=== PATIENT | female | born 1970 | race Caucasian/White ===

== ENCOUNTER → 2021-12-30 | Outpatient (CLI) | payer OTHER ==
--- NOTE | 2021-12-31 10:42 | MM ---
Reason for Exam: Screening (asymptomatic). Last mammogram was performed 10 year(s) and 4 month(s) ago. Patient History: Menarche at age 10. First Full-Term at age 34. Late child-bearing (after 30). 06/26/2007, Benign Cyst Aspiration on the right side. Risk Values: Shaunna 5 year model risk: 1.6%. NCI Lifetime model risk: 12.8%. Prior Study Comparison: 05/17/2007 Bilateral Screening Mammogram, [facility]. 09/13/2011 Bilateral Screening Mammogram, [facility]. Tissue Density: There are scattered fibroglandular densities. Findings: Analyzed By CAD. There is a rounded density with indistinct margins in the outer mid right breast. This area measures 10 mm located 8 cm the nipple, likely in the upper portion of the left breast additional workup is recommended. Compression view in the craniocaudal and mediolateral oblique views are recommended. Standard right mediolateral view is recommended Left breast appears unremarkable. Overall Assessment: Incomplete: need additional imaging evaluation, BI-RAD 0 Management: Diagnostic Mammogram of the right breast. A negative mammogram report should not preclude additional follow up of suspicious palpable abnormalities. Patient should continue monthly self breast exam. A clinical breast exam by your physician is recommended on an annual basis and results should be correlated with mammographic findings. Electronically signed and approved by: Sg Morales D.O. Radiologis
== END | disposition home or self-care (01) ==
LOC: RADMAMWWP 16:25
DX: Z12.31 Encounter for screening mammogram for malignant neoplasm of breast (principal)
CPT/HCPCS: 77067

== ENCOUNTER → 2022-01-18 | Outpatient (CLI) | payer OTHER ==
--- NOTE | 2022-01-18 16:46 | MM ---
Reason for Exam: Additional evaluation requested from abnormal screening. Last screening mammogram was performed less than 1 month ago. Patient History: Menarche at age 10. First Full-Term at age 34. Late child-bearing (after 30). 06/26/2007, Benign Cyst Aspiration on the right side. Last menstrual period: 01/11/2022 Risk Values: Shaunna 5 year model risk: 1.6%. NCI Lifetime model risk: 12.8%. Prior Study Comparison: 09/13/2011 Bilateral Screening Mammogram, [facility]. 12/30/2021 Bilateral MG screening mammo w CAD, [facility]. Tissue Density: Right: There are scattered fibroglandular densities. Findings: Analyzed By CAD. Focal asymmetry with indistinct margins in the outer mid right breast 8 cm in the nipple persists on the CC compression view. Overall Assessment: Incomplete: need additional imaging evaluation, BI-RAD 0 Management: Diagnostic Breast Ultrasound of the right breast. A clinical breast exam by your physician is recommended on an annual basis and results should be correlated with mammographic findings. This exam should not preclude additional follow-up of suspicious palpable abnormalities. Results were given to the patient verbally at the time of exam. Electronically signed and approved by: Froylan Gutierrez D.O.
--- NOTE | 2022-01-19 13:43 | USB ---
Reason for Exam: Additional evaluation requested from abnormal screening. Patient History: Menarche at age 10. First Full-Term at age 34. Late child-bearing (after 30). 06/26/2007, Benign Cyst Aspiration on the right side. Risk Values: Shaunna 5 year model risk: 1.6%. NCI Lifetime model risk: 12.8%. Technique: Method: Targeted. Prior Study Comparison: 05/17/2007 Bilateral Screening Mammogram, [facility]. 09/13/2011 Bilateral Screening Mammogram, [facility]. 12/30/2021 Bilateral MG screening mammo w CAD, [facility]. Findings: There is a hypoechoic mass within the right breast at 12:00 8 cm from the nipple with indistinct margins and no posterior acoustic features. No intravascular flow. This may represent a complicated cyst. Overall Assessment: Probably benign, BI-RAD 3 Management: Diagnostic Breast Ultrasound of the right breast in 6 months. A clinical breast exam by your physician is recommended on an annual basis and results should be correlated with mammographic findings. Electronically signed and approved by: Froylan Gutierrez D.O.
== END | disposition home or self-care (01) ==
LOC: RADMAMWWP 15:15
DX: R92.8 Other abnormal and inconclusive findings on diagnostic imaging of breast (principal)
CPT/HCPCS: 77061; 77065

== ENCOUNTER → 2023-10-31 | Outpatient (CLI) | payer OTHER, BC ==
[2023-10-31 09:31] LABS: Basophils # (A) 0.1 k/uL (0-0.2); Basophils % (A) 0 %; Eosinophils # (A) 0.2 k/uL (0-0.7); Eosinophils % (A) 2 %; HCT 43.5 % (34.0-46.0); HGB 14.2 gm/dL (11.4-16.0); Lymphocytes # (A) 1.8 k/uL (1.0-4.8); Lymphocytes % (A) 17 %; MCH 28.9 pg (25.0-35.0); MCHC 32.7 g/dL (31.0-37.0); MCV 88.4 fL (80.0-100.0); Mean Platelet Volume 9.4; Monocytes # (A) 0.5 k/uL (0-1.0); Monocytes % (A) 5 %; Neutrophils # (A) 7.8 k/uL (1.3-7.7); Neutrophils % (A) 75 %; Platelet Count 234 k/uL (150-450); RBC 4.92 m/uL (3.80-5.40); RDW 13.2 % (11.5-15.5); WBC 10.5 k/uL (3.8-10.6)
[2023-10-31 10:23] LABS: Amphetamine Screen,Urine Not Detected (NotDetected); Benzodiazepines Screen,Urine Detected (NotDetected); Cocaine Screen,Urine Not Detected (NotDetected); Methadone Screen, Urine Not Detected (NotDetected); Opiate Screen,Urine Not Detected (NotDetected); Phencyclidine Screen,Urine Not Detected (NotDetected); Tricyclic Antidepressant,Urine Not Detected (NotDetected); Urn Cannabinoid Scrn Not Detected (NotDetected)
[2023-10-31 10:24] LABS: Barbiturate Screen,Urine Not Detected (NotDetected); Oxycodone Screen, Urine Not Detected (NotDetected)
[2023-10-31 15:34] LABS: ALT 24 U/L (8-44); AST 16 U/L (13-35); Albumin 4.3 g/dL (3.8-4.9); Albumin/Globulin Ratio 1.59 Ratio (1.60-3.17); Alkaline Phosphatase 59 U/L (41-126); BUN/Creat Ratio 26.83 Ratio (12.00-20.00); Blood Urea Nitrogen 16.1 mg/dL (9.0-27.0); Calcium 10.6 mg/dL (8.7-10.3); Carbon Dioxide 23.8 mmol/L (21.6-31.8); Chloride 104 mmol/L (96-109); Globulin 2.7 g/dL (1.6-3.3); Glucose 112 mg/dL (70-110); Potassium 4.2 mmol/L (3.5-5.5); Sodium 142 mmol/L (135-145); Total Bilirubin 0.5 mg/dL (0.3-1.2)
[2023-10-31 21:40] LABS: Microalbumin Creatinine Ratio <20 mg/g Cr (0-30); Urine Creatinine 60.6 mg/dL (28.0-217.0)
== END | disposition home or self-care (01) ==
LOC: LABWHC1 08:05
PROVIDERS: ATTEND Family Medicine
DX: E11.65 Type 2 diabetes mellitus with hyperglycemia (principal); Z79.899 Other long term (current) drug therapy
CPT/HCPCS: 36415; 80053; 80061; 80306; 82043; 82570; 83036; 84443; 85025

== ENCOUNTER 2024-03-25 20:25 | Emergency (ER) | payer OTHER, BC ==
[2024-03-25 20:32] VITALS: TEMP 98.6
--- NOTE | 2024-03-25 20:50 | ED ---
Extremity Problem HPI - General Chief complaint: Extremity Problem,Nontraumatic Stated complaint: L Leg Pain Time Seen by Provider: 03/25/24 20:33 Source: patient, RN notes reviewed Mode of arrival: wheelchair Limitations: no limitations - History of Present Illness Initial comments: This is a 54-year-old female who presents to the emergency department for left knee pain. States that it started a couple of weeks ago. Denies any injuries. Pain is primarily behind the left knee with some radiation up and down the leg. However, states that this is only painful when she tries to ambulate or put pressure on it. When sitting still pain is not as bothersome. States that today she tried to stand and could not put any pressure on the leg, prompting her to come here for evaluation. She took ibuprofen 600 mg with only minor relief in symptoms. MD Complaint: extremity pain - Related Data Previous Rx's Medication Instructions Recorded Meloxicam [Mobic] 15 mg PO DAILY PRN #30 tab 03/25/24 methocarbamoL [Robaxin-750] 1,500 mg PO TID PRN #30 tab 03/25/24 Allergies Allergy/AdvReac Type Severity Reaction Status Date / Time Sulfa (Sulfonamide AdvReac Rash/Hives Verified 03/25/24 20:32 Antibiotics) Review of Systems ROS Statement: Those systems with pertinent positive or pertinent negative responses have been documented in the HPI. ROS Other: All systems not noted in ROS Statement are negative. Past Medical History Past Medical History: No Reported History History of Any Multi-Drug Resistant Organisms: None Reported Past Surgical History: Orthopedic Surgery, Tubal Ligation Additional Past Surgical History / Comment(s): right knee arthro, right foot Past Psychological History: Anxiety Smoking Status: Former smoker Past Alcohol Use History: None Reported Past Drug Use History: None Reported General Exam Limitations: no limitations General appearance: alert, in no apparent distress Head exam: Present: atraumatic, normocephalic, normal inspection Respiratory exam: Present: normal lung sounds bilaterally. Absent: respiratory distress, wheezes, rales, rhonchi, stridor Cardiovascular Exam: Present: regular rate, normal rhythm, normal heart sounds. Absent: systolic murmur, diastolic murmur, rubs, gallop, clicks Extremities exam: Present: other (No swelling, tenderness, erythema, or warmth to the left lower extremity. Full range of motion. Negative Miguel Angel's. Ne gative anterior posterior drawer test. Negative Paul's. 2+ DP and PT pulses) Neurological exam: Present: alert, oriented X3, CN II-XII intact Psychiatric exam: Present: normal affect, normal mood Skin exam: Present: warm, dry, intact, normal color. Absent: rash Course Vital Signs 03/25/24 03/25/24 20:27 22:33 Temperature 98.6 F Pulse Rate 78 65 Respiratory 16 18 Rate Blood Pressure 166/91 133/77 O2 Sat by Pulse 97 97 Oximetry Medical Decision Making - Medical Decision Making This is a 54-year-old female who presents to the emergency department for left knee pain. Was pt. sent in by a medical professional or institution? @ -No Did you speak to anyone other than the patient for history? @ -No Did you review nursing and triage notes? @ -Yes, and I agree, it is accurate with regards to the patient's symptoms. Were old charts reviewed? @ -No Differential Diagnosis? @ -Differential Musculoskeletal: Muscular strain, contusion, ligament sprain, fracture, arthritis, septic arthritis, bursitis, cellulitis, muscle spasm, nerve compression, DVT, arterial occlusion, herpes zoster, electrolyte abnormality, tumor.... This is not meant to be in all inclusive list EKG interpreted by me (3pts min.)? @ -Not obtained X-rays interpreted by me (1pt min.)? @ -X-ray of the left knee obtained. My interpretation identifies no acute fractures. CT interpreted by me (1pt min.)? @ -Not obtained U/S interpreted by me (1pt. min.)? @ -Duplex ultrasound of the left lower extremity obtained. My interpretation identifies no evidence of a DVT. What testing was considered but not performed? (CT, X-rays, U/S, labs)? Why? @ -None What meds were considered but not given? Why? @ -None Did you discuss the management of the patient with other professionals? @ -No Did you reconcile home meds? @ -No Was smoking cessation discussed for >3mins.? @ -No Was critical care preformed (if so, how long)? @ -No Were there social determinants of health that impacted care today? How? (Homelessness, low income, unemployed, alcoholism, drug addiction, transportation, low edu. Level, literacy, decrease access to med. care, shelter, rehab)? @ -No Was there de-escalation of care discussed even if they declined? (Discuss DNR or withdrawal of care, Hospice)? @ -No What co-morbidities impacted this encounter? (DM, HTN, Smoking, COPD, CAD, Cancer, CVA, Hep., AIDS, mental health diagnosis, sleep apnea, morbid obesity)? @ -None Was patient admitted / discharged? @ -Discharged. X-ray of the left knee obtained revealing no acute process. Duplex ultrasound of the left lower extremity reveals no evidence of a DVT. Pain medication given in the emergency department. Knee immobilizer applied. Mobic and Robaxin prescribed for further symptomatic management. Advised follow-up with her PCP or orthopedics. Patient discharged home in stable condition. Case discussed with ED attending Dr. Villeda. Return precautions reviewed in depth, the patient is instructed to return to the emergency department with any new, worsening, or concerning symptoms. Patient verbalized understanding. Undiagnosed new problem with uncertain prognosis? @ -None Drug Therapy requiring intensive monitoring for toxicity (Heparin, Nitro, Insulin, Cardizem)? @ -None Were any procedures done? @ -None Diagnosis/symptom? @ -Left knee pain Acute, or Chronic, or Acute on Chronic? @ -Acute Uncomplicated (without systemic symptoms) or Complicated (systemic symptoms)? @ -Uncomplicated Side effects of treatment? @ -None Exacerbation, Progression, or Severe Exacerbation] @ -Not applicable Poses a threat to life or bodily function? @ -No - Radiology Data Radiology results: report reviewed, image reviewed Disposition Clinical Impression: Left knee pain Disposition: HOME SELF-CARE Instructions (If sedation given, give patient instructions): Knee Pain (ED) Additional Instructions: Return to the emergency department with any new, worsening, or concerning symptoms. Take the Mobic once daily for pain relief. If you take this, do not take any other anti-inflammatories such as ibuprofen, take one or the other. You may take Tylenol. Take the Robaxin as 1 to 2 tablets up to 3-4 times daily. Follow up with your primary care provider in 1-2 days. Prescriptions: Meloxicam [Mobic] 15 mg PO DAILY PRN #30 tab PRN Reason: Pain methocarbamoL [Robaxin-750] 1,500 mg PO TID PRN #30 tab PRN Reason: Pain Is patient prescribed a controlled substance at d/c from ED?: No Referrals: [facility],Clinic [Primary Care Provider] - 1-2 days Time of Disposition: 22:11
[2024-03-25] MEDS: HYDROcodone/APAP 5-325MG 1 EACH TAB PO STA (20:53)
--- NOTE | 2024-03-25 21:25 | XR ---
EXAMINATION TYPE: XR knee complete LT DATE OF EXAM: 03/25/2024 9:18 PM COMPARISON: None available. CLINICAL INDICATION: Female, 54 years old with history of Pain; [facility] TECHNIQUE: XR knee complete LT views submitted. FINDINGS: No evidence of any acute osseous pathology, soft tissue swelling, or joint effusion is no hema. IMPRESSION: 1. No acute osseous pathology. [facility], , 03/25/2024 9:22 PM
--- NOTE | 2024-03-25 21:36 | US ---
EXAMINATION TYPE: US venous doppler duplex LE LT DATE OF EXAM: 03/25/2024 8:44 PM COMPARISON: NONE CLINICAL INDICATION: Female, 54 years old with history of Pain; Patient states leg pain behind the kn ee that started today. No swelling,redness, or warmth. No hx dvt. Patient is not on thinners, TECHNIQUE: The lower extremity deep venous system is examined utilizing real time linear array sonog toni with graded compression, color doppler sonography, and spectral doppler. SIDE PERFORMED: Left FINDINGS: VESSELS IMAGED: Common Femoral Vein Deep Femoral Vein Greater Saphenous Vein Femoral Vein Popliteal Vein Small Saphenous Vein Proximal Calf Veins Left Leg: Negative for DVT, Color Doppler imaging shows patency of the vessels. Spectral waveforms a re within normal limits. IMPRESSION: No ultrasound evidence for deep venous thrombosis. [facility], , 03/25/2024 9:34 PM
[2024-03-25] MEDS: KETOROLAC 15 MG/ML 1 ML VIAL IM STA (21:49)
[2024-03-25] MEDS: ACET/COD 300 MG/30 MG STARTER PACK 6 TAB BTL PO STA (22:24)
[2024-03-25] MEDS: MELOXICAM 7.5 MG TAB PO STA (22:25)
[2024-03-25 22:45] VITALS: BP 133/77; PULSE 65; RESP 18
== END 2024-03-25 22:33 | disposition home or self-care (01) ==
LOC: EC 20:25
DX: M25.562 Pain in left knee (principal); Z88.2 Allergy status to sulfonamides; Z87.891 Personal history of nicotine dependence
CPT/HCPCS: 73562; 93971; 99284; L1830 ×2

== ENCOUNTER 2024-09-16 13:14 | Emergency (ER) | payer OTHER, BC ==
--- NOTE | 2024-09-16 14:39 | ED ---
General Adult HPI - General Source: patient Mode of arrival: ambulatory Limitations: no limitations <Ayaan Villeda - Last Filed: 09/16/24 15:49> - General Source: patient, RN notes reviewed, old records reviewed Mode of arrival: ambulatory Limitations: no limitations - History of Present Illness Location: head Radiation: non-radiation Severity scale (1-10): 7 Quality: stabbing, aching Consistency: intermittent Improves with: none Associated Symptoms: denies other symptoms Treatments Prior to Arrival: none <Robb Mendoza - Last Filed: 09/16/24 16:46> - General Chief complaint: Nausea/Vomiting/Diarrhea Stated complaint: Vomiting Time Seen by Provider: 09/16/24 14:23 - History of Present Illness Initial comments: Dictation was produced using [employer] dictation software. please excuse any grammatical, word or spelling errors. Chief Complaint: 54-year-old female presents to the emergency department with migraine History of Present Illness: Patient is a 54-year-old female with past medical history of migraine presents to the emergency department with migraine and dizziness. Patient states that it feels like her usual migraines. [facility]. States that feels like it is encompassing her whole head. Throbbing in nature. She states she is sensitive to light and sound. The ROS documented in this emergency department record has been reviewed and confirmed by me. Those systems with pertinent positive or negative responses have been documented in the HPI. All other systems are other negative and/or noncontributory. (Ayaan Villeda) This is a 54-year-old female for migraine headaches this is just like her typical migraine headaches (Robb Mendoza) - Related Data Previous Rx's Medication Instructions Recorded Meloxicam [Mobic] 15 mg PO DAILY PRN #30 tab 03/25/24 methocarbamoL [Robaxin-750] 1,500 mg PO TID PRN #30 tab 03/25/24 Allergies Allergy/AdvReac Type Severity Reaction Status Date / Time Sulfa (Sulfonamide AdvReac Rash/Hives Verified 09/16/24 13:42 Antibiotics) Review of Systems ROS Other: All systems not noted in ROS Statement are negative. <Ayaan Villeda - Last Filed: 09/16/24 15:49> ROS Other: All systems not noted in ROS Statement are negative. <Robb Mendoza - Last Filed: 09/16/24 16:46> ROS Statement: Those systems with pertinent positive or pertinent negative responses have been documented in the HPI. Past Medical History Past Medical History: No Reported History History of Any Multi-Drug Resistant Organisms: None Reported Past Surgical History: Orthopedic Surgery, Tubal Ligation Additional Past Surgical History / Comment(s): right knee arthro, right foot Past Psychological History: Anxiety Smoking Status: Former smoker Past Alcohol Use History: None Reported Past Drug Use History: None Reported <Ayaan Villeda - Last Filed: 09/16/24 15:49> General Exam Limitations: no limitations <Ayaan Villeda - Last Filed: 09/16/24 15:49> General appearance: alert, in no apparent distress Head exam: Present: atraumatic, normocephalic, normal inspection Eye exam: Present: normal appearance, PERRL, EOMI. Absent: scleral icterus, con junctival injection, periorbital swelling ENT exam: Present: normal exam, mucous membranes moist Neck exam: Present: normal inspection. Absent: tenderness, meningismus, lymphadenopathy Respiratory exam: Present: normal lung sounds bilaterally. Absent: respiratory distress, wheezes, rales, rhonchi, stridor Cardiovascular Exam: Present: regular rate, normal rhythm, normal heart sounds. Absent: systolic murmur, diastolic murmur, rubs, gallop, clicks GI/Abdominal exam: Present: soft, normal bowel sounds. Absent: distended, tenderness, guarding, rebound, rigid Extremities exam: Present: normal inspection, full ROM, normal capillary refill. Absent: tenderness, pedal edema, joint swelling, calf tenderness Back exam: Present: normal inspection Neurological exam: Present: alert, oriented X3, CN II-XII intact Psychiatric exam: Present: normal affect, normal mood Skin exam: Present: warm, dry, intact, normal color. Absent: rash <Robb Mendoza - Last Filed: 09/16/24 16:46> - General Exam Comments Initial Comments: PHYSICAL EXAM: General Impression: Alert and oriented x3, mild distress secondary to migraine HEENT: Normocephalic atraumatic, extra-ocular movements intact, pupils equal and reactive to light bilaterally, mucous membranes moist. Cardiovascular: Heart regular rate and rhythm Chest: Able to complete full sentences, no retractions, no tachypnea Abdomen: abdomen soft, non-tender, non-distended, no organomegaly Musculoskeletal: Pulses present and equal in all extremities, no peripheral edema Motor: no focal deficits noted Neurological: CN II-XII grossly intact, no focal motor or sensory deficits noted Skin: Intact with no visualized rashes Psych: Normal affect and mood (Ayaan Villeda) Course <Robb Mendoza - Last Filed: 09/16/24 16:46> Vital Signs 09/16/24 13:40 Temperature 99.3 F Pulse Rate 114 H Respiratory 18 Rate Blood Pressure 134/84 O2 Sat by Pulse 96 Oximetry - Reevaluation(s) Reevaluation #1: 09/16/24 16:45 Medical records reviewed (Robb Mendoza) Reevaluation #2: 09/16/24 16:45 Symptoms improved feels good for discharge (Robb Mendoza) Medical Decision Making <Ayaan Villeda - Last Filed: 09/16/24 15:49> <Robb Mendoza - Last Filed: 09/16/24 16:46> - Medical Decision Making Was pt. sent in by a medical professional or institution (KEVIN Cortes, RETARDER OPERATOR, urgent care, hospital, or shelter...) When possible be specific @ -No Did you speak to anyone other than the patient for history (EMS, parent, family, police, friend...)? What history was obtained from this source @ -No Did you review nursing and triage notes (agree or disagree)? Why? @ -I reviewed and agree with nursing and triage notes Were old charts reviewed (outside hosp., previous admission, EMS record, old EKG, old radiological studies, urgent care reports/EKG's, shelter records)? Report findings @ -No old charts were reviewed Differential Diagnosis (chest pain, altered mental status, abdominal pain women, abdominal pain men, vaginal bleeding, musculoskeletal, weakness, fever, dyspnea, syncope, headache, dizziness, GI bleed, back pain, seizure, CVA, palpatations, mental health)? @ -Differential Headache: Migraine, tension, cluster, carbon monoxide, central venous thrombosis, pension karma temporal arteritis, acute closure glaucoma, intercranial hemorrhage, mastoiditis, sinusitis, head injury, this is not meant to be an all-inclusive list. EKG interpreted by me (3pts min.). @ -None done X-rays interpreted by me (1pt min.). @ -None done CT interpreted by me (1pt min.). @ -None done U/S interpreted by me (1pt. min.). @ -None done What testing was considered but not performed or refused? (CT, X-rays, U/S, labs)? Why? @ -None What meds were considered but not given or refused? Why? @ -None Was smoking cessation discussed for >3mins.? @ -No Were there social determinants of health that impacted care today? How? (Homelessness, low income, unemployed, alcoholism, drug addiction, transportation, low edu. Level, literacy, decrease access to med. care, usp, rehab)? @ -No Was there de-escalation of care discussed even if they declined (Discuss DNR or withdrawal of care, Hospice)? DNR status @ -No What co-morbidities impacted this encounter? (DM, HTN, Smoking, COPD, CAD, Cancer, CVA, ARF, Chemo, Hep., AIDS, mental health diagnosis, sleep apnea, morbid obesity)? @ -Migraine Was patient admitted / discharged? Hospital course, mention meds given and route, prescriptions, significant lab abnormalities, going to OR and other pertinent info. @ -54-year-old female with migraine. Vital signs stable. Patient has no high risk headache features. Patient given headache cocktail. She is requesting urinalysis after having some mild urinary symptoms after her cruise vacation. Improved after headache cocktail. Did you discuss the management of the patient with other professionals (professionals i.e. , PA, RETARDER OPERATOR, lab, RT, psych nurse, social service agency director, blood coordinator, teacher, chief safety officer, assistant case manager)? Give summary @ -No Was critical care preformed (if so, how long)? @ -No Undiagnosed new problem with uncertain prognosis? @ -No Drug Therapy requiring intensive monitoring for toxicity (Heparin, Nitro, Insulin, Cardizem)? @ -No Were any procedures done? @ -No Diagnosis/symptom? Acute, or Chronic, or Acute on Chronic? Uncomplicated (without systemic symptoms) or Complicated (systemic symptoms)? @ -Migraine Side effects of treatment? @ -No Exacerbation, Progression, or Severe Exacerbation? @ -No Poses a threat to life or bodily function? How? (Chest pain, USA, ID, pneumonia, PE, COPD, DKA, ARF, appy, cholecystitis, CVA, Diverticulitis, Homicidal, Suicidal, threat to staff... and all critical care pts) @ -No Patient care signed out to Dr. Lima At 4:00 PM (Ayaan Villeda) 54 male female to ER for evaluation of headache migraine headache typical, patient feels well here in the ER and can be discharged home (Robb Mendoza) Disposition Is patient prescribed a controlled substance at d/c from ED?: No Time of Disposition: 15:43 <Ayaan Villeda - Last Filed: 09/16/24 15:49> Is patient prescribed a controlled substance at d/c from ED?: No <Robb Mendoza - Last Filed: 09/16/24 16:46> Clinical Impression: Headache Disposition: HOME SELF-CARE Condition: Fair Instructions (If sedation given, give patient instructions): Migraine Headache (ED) Referrals: Victor Hugo Dueñas DO [Primary Care Provider] - 1-2 days
[2024-09-16] MEDS: SODIUM CHLORIDE 0.9% 1,000 ML IV STA (15:26)
[2024-09-16] MEDS: ONDANSETRON 4 MG/2 ML VIAL IVP STA (15:26)
[2024-09-16] MEDS: diphenhydrAMINE 50 MG/ML 1 ML VIAL IVP STA (15:27)
[2024-09-16] MEDS: KETOROLAC 15 MG/ML 1 ML VIAL IVP STA (15:29)
[2024-09-16] MEDS: PROCHLORPERAZINE INJ 10 MG/2 ML VIAL IVP STA (17:25)
[2024-09-16] MEDS: MORPHINE SULFATE 4 MG/ML SYRINGE IVP STA (17:26)
[2024-09-16 18:02] VITALS: TEMP 98.9
[2024-09-16 18:04] VITALS: BP 132/58; PULSE 92; RESP 20
== END 2024-09-16 18:02 | disposition home or self-care (01) ==
LOC: EC 13:14
DX: G43.909 Migraine, unspecified, not intractable, without status migrainosus (principal); Z87.891 Personal history of nicotine dependence; Z88.2 Allergy status to sulfonamides
CPT/HCPCS: 99284; 96374; 96375; 96361; J2270; J1200; J0780; J2405; J1885